=== PATIENT | male | born 1955 | race Caucasian/White ===

== ENCOUNTER 2018-02-28 13:03 | Emergency (ER) | payer BC, OTHER, SELFPAY ==
[2018-02-28 13:11] VITALS: BP 94/67; PULSE 92; RESP 18; TEMP 36.8; O2SAT 96; BMI 33.0
--- NOTE | 2018-02-28 13:35 | ED.ALLEREA ---
HPI - Allergic Reaction <RAEANN Trevino - Last Filed: 02/28/18 21:39> General Chief complaint: Allergic Reaction Stated complaint: HIVES/WELTS Time Seen by Provider: 02/28/18 13:34 Source: patient Mode of arrival: ambulatory Limitations: no limitations History of Present Illness HPI narrative: 62-year-old male history of hypertension and is a former smoker here for complaint of having hives to his lower extremities that his moved up and to his lower back over the past couple of days. He denies any changes in his medications. He states that he is taking cetirizine and Benadryl for his symptoms. He denies any changes in hygiene products. He does state that he ate a few walnuts day before yesterday and is suspicious that this may be causing his symptoms. He denies any shortness of breath. No chest pain. He does state that he has felt dizzy after taking the Benadryl. No other concerns or complaints at this time. He denies any sensation of tightening in his throat. complaint: hives Related Data Home Medications Medication Instructions Recorded Confirmed cetirizine 10 mg PO BID 10/21/17 10/21/17 diphenhydramine HCl 1 cap PO PRN PRN 10/21/17 10/21/17 lansoprazole 15 mg PO DAILY 10/21/17 10/21/17 losartan 100 mg PO DAILY 10/21/17 10/21/17 lysine 500 mg PO DAILY 10/21/17 10/21/17 meloxicam 7.5 mg PO PRN PRN 10/21/17 10/21/17 multivitamin 1 tab PO DAILY 10/21/17 10/21/17 Previous Rx's Medication Instructions Recorded aspirin [Adult Low Dose Aspirin] 81 mg PO BID #60 tab 10/22/17 acetaminophen 650 mg PO Q6HR PRN #60 tab MDD 10/23/17 4000mg tamsulosin 0.4 mg PO DAILY #30 cap 10/23/17 prednisone 40 mg PO DAILY #6 tab 02/28/18 Allergies Allergy/AdvReac Type Severity Reaction Status Date / Time hydrocodone Allergy Severe Anxiety, Verified 02/28/18 13:18 ptsd exacerbation, urinary retention oxycodone Allergy Severe anxiety, Verified 02/28/18 13:18 ptsd exacerbation, urinary retention Penicillins [PENICILLINS] Allergy Severe THROAT Verified 02/28/18 13:18 SWELLING adhesive tape [ADHESIVE TAPE] Allergy Intermediate SOME Verified 02/28/18 13:18 TAPES, ITCHING ibuprofen [IBUPROFEN] Allergy Mild ITCHING Verified 02/28/18 13:18 ketoprofen [KETOPROFEN] Allergy Mild ITCHING Verified 02/28/18 13:18 lisinopril [LISINOPRIL] AdvReac Severe COUGH Verified 02/28/18 13:18 Review of Systems <RAEANN Trevino - Last Filed: 02/28/18 21:39> Constitutional Denies chills, Denies fever(s), Denies lethargy and Denies weakness Eyes Denies change in vision, Denies eye discharge, Denies irritation and Denies loss of vision ENT Ears, Nose, Mouth, and Throat: Denies change in voice, Denies neck pain and Denies sore throat Cardiovascular Denies chest pain, Denies irregular heart rhythm, Denies lightheadedness, Denies palpitations, Denies dyspnea, Denies dyspnea on exertion and Denies orthopnea Respiratory Denies cough, Denies dyspnea, Denies dyspnea on exertion and Denies wheezing Gastrointestinal Gastrointestinal: Denies abdominal pain, Denies change in bowel habits, Denies diarrhea, Denies nausea and Denies vomiting Genitourinary Denies hematuria, Denies flank pain, Denies urinary incontinence and Denies urinary urgency Musculoskeletal Denies neck pain Integumentary/Breasts Comments: Hives Neurologic Denies confusion, Denies loss of vision and Denies weakness Psychiatric Denies anxiety, Denies confusion, Denies depression, Denies homicidal ideation and Denies suicidal ideation Endocrine Denies palpitations Hematologic/Lymphatic Denies easy bruising Allergic/Immunologic Denies wheezing Exam <RAEANN Trevino - Last Filed: 02/28/18 21:39> Initial Vital Signs Initial Vital Signs: Vital Signs Temperature 98.3 F 02/28/18 13:11 Pulse Rate 92 H 02/28/18 13:11 Respiratory Rate 18 02/28/18 13:11 Blood Pressure 94/67 02/28/18 13:11 Pulse Oximetry 96 02/28/18 13:11 Const General: cooperative and well developed Nutritional Appearance: well nourished Orientation: alert, awake, oriented x3 and not confused [facility] Head: normocephalic and atraumatic Mouth: oral mucosae normal, oropharynx normal and moist mucous membranes Eyes Conjunctivae: conjunctivae normal Sclera: sclerae normal Pupils: PERRL EOM: EOM intact bilaterally Resp Effort & Inspection: normal respiratory effort, able to speak in complete sentences, no respiratory distress and no use of accessory muscles Auscultation: clear to auscultation bilaterally, no rales, no rhonchi and no wheezes Cardio Rate: regular rate Rhythm: regular rhythm Heart Sounds: no click, no gallops, no murmurs and no rubs Pulses: normal peripheral pulses Skin Other: urticaria to all extremities and to lower back Neuro General: alert, oriented x3, gait normal and no focal motor deficits Speech: speech normal <Rafiq Dangelo DO - Last Filed: 03/01/18 06:47> Initial Vital Signs Initial Vital Signs: Vital Signs Temperature 98.3 F 02/28/18 13:11 Pulse Rate 92 H 02/28/18 13:11 Respiratory Rate 18 02/28/18 13:11 Blood Pressure 94/67 02/28/18 13:11 Pulse Oximetry 96 02/28/18 13:11 Course <RAEANN Trevino - Last Filed: 02/28/18 21:39> Orders Ordered: Discontinued Medications Prednisone (Deltasone) 40 mg PO NOW ONE Stop: 02/28/18 14:35 Last Admin: 02/28/18 15:43 Dose: 40 mg Vital Signs - 8 hr 02/28/18 13:50 Pulse Rate 89 Respiratory Rate 15 Blood Pressure [Right Arm] 108/66 Pulse Oximetry 95 <DO Daniella Roy Last Filed: 03/01/18 06:47> Orders Ordered: Discontinued Medications Prednisone (Deltasone) 40 mg PO NOW ONE Stop: 02/28/18 14:35 Last Admin: 02/28/18 15:43 Dose: 40 mg Vital Signs - 8 hr 02/28/18 13:50 Pulse Rate 89 Respiratory Rate 15 Blood Pressure [Right Arm] 108/66 Pulse Oximetry 95 MDM - Allergic Reaction <RAEANN Trevino - Last Filed: 02/28/18 21:39> Lab Data Result diagrams: 02/28/18 14:10 02/28/18 14:10 Lab Results 02/28/18 02/28/18 Range/Units 14:10 14:10 WBC 15.9 H (4.5-11.0) X10^3/uL RBC 4.92 (4.5-5.9) X10^6/uL Hgb 14.2 (13.5-17.5) g/dL Hct 41.7 (41-53) % MCV 84.8 (80-100) fL MCH 28.8 (26-34) PG MCHC 34.0 (30-36) % RDW 16.7 H (11.6-14.8) % Plt Count 170 (150-400) X10^3/uL Neut % (Auto) 93.4 H (50-75) % Lymph % (Auto) 4.1 L (25-40) % [place] % (Auto) 1.8 L (3-14) % Eos % (Auto) 0.2 L (2-4) % Baso % (Auto) 0.5 (0-2) % Neut # (Auto) 36736 H (3997-3117) /uL Sodium 138 (137-145) mmol/L Potassium 4.3 (3.4-5.1) mmol/L Chloride 101 (98-107) mmol/L Carbon Dioxide 29 (22-32) mmol/L BUN 21 H (9-20) mg/dL Creatinine 1.20 (0.66-1.25) mg/dL Estimated GFR > 60.0 (>60) mL/min BUN/Creatinine Ratio 17.5 (6-22) Glucose 151 H (80-110) mg/dL Calcium 8.7 (8.4-10.2) mg/dL Total Bilirubin 1.0 (0.2-1.3) mg/dL AST 17 (17-59) IU/L ALT 20 L (21-72) IU/L Alkaline Phosphatase 52 (38-126) U/L Total Creatine Kinase 31 L (55-170) U/L Troponin I < 0.012 (0.01-0.034) ng/mL B-Natriuretic Peptide < 100.0 (<100) Total Protein 6.2 L (6.3-8.2) g/dL Albumin 3.6 (3.5-5.0) g/dL Globulin 2.6 (1.7-4.1) g/dL Albumin/Globulin Ratio 1.4 (1.0-2.8) Imaging Data Chest x-ray: Radiologist's impression: [address] [address] XRay Report Signed Patient: Venkata Navas MR#: [id number] : 1955 Acct:[id number] Age/Sex: 62 / M Date of Service: 02/28/18 Loc: ED Accession Number: [id number] Procedure: XR chest 1V Ordering Provider: Bry Wagner PROCEDURE: XR CHEST 1V INDICATIONS: dizziness TECHNIQUE: One view of the chest was acquired. COMPARISON: None. FINDINGS: Surgical changes and devices: None. Lungs and pleura: No pleural effusions or pneumothorax. Lungs are clear. Mediastinum: Mediastinal contours appear normal. Heart size is normal. Bones and chest wall: No suspicious bony lesions. Overlying soft tissues appear unremarkable. IMPRESSION: No acute cardiopulmonary pathology. ECG Data Interpretation: EKG shows normal sinus rhythm with no ST elevation or depression. No ectopy. Ventricular rate of 84. Pr interval 177. QRS duration of 105. QT of 371 MDM Narrative Medical decision making narrative: CBC shows elevated white count otherwise is unremarkable. Chem panel shows elevated glucose otherwise is unremarkable. BNP was obtained was negative. Cardiac enzymes was obtained was negative. Chest x-ray was obtained was unremarkable. Believe that his symptoms of the dizziness is due to his Benadryl use. Suspect that the walnut ingestion may be causing his symptoms. Will have her continue to use the Zyrtec during the day as is less sedating than the Benadryl and use Benadryl at night. He is given short course of prednisone to help with symptoms. Follow up with his primary care provider later this week. For any worsening symptoms return to the emergency room. <Rafiq Dangelo, - Last Filed: 03/01/18 06:47> Lab Data Lab Results 02/28/18 02/28/18 Range/Units 14:10 14:10 WBC 15.9 H (4.5-11.0) X10^3/uL RBC 4.92 (4.5-5.9) X10^6/uL Hgb 14.2 (13.5-17.5) g/dL Hct 41.7 (41-53) % MCV 84.8 (80-100) fL MCH 28.8 (26-34) PG MCHC 34.0 (30-36) % RDW 16.7 H (11.6-14.8) % Plt Count 170 (150-400) X10^3/uL Neut % (Auto) 93.4 H (50-75) % Lymph % (Auto) 4.1 L (25-40) % [place] % (Auto) 1.8 L (3-14) % Eos % (Auto) 0.2 L (2-4) % Baso % (Auto) 0.5 (0-2) % Neut # (Auto) 16603 H (9529-0585) /uL Sodium 138 (137-145) mmol/L Potassium 4.3 (3.4-5.1) mmol/L Chloride 101 (98-107) mmol/L Carbon Dioxide 29 (22-32) mmol/L BUN 21 H (9-20) mg/dL Creatinine 1.20 (0.66-1.25) mg/dL Estimated GFR > 60.0 (>60) mL/min BUN/Creatinine Ratio 17.5 (6-22) Glucose 151 H (80-110) mg/dL Calcium 8.7 (8.4-10.2) mg/dL Total Bilirubin 1.0 (0.2-1.3) mg/dL AST 17 (17-59) IU/L ALT 20 L (21-72) IU/L Alkaline Phosphatase 52 (38-126) U/L Total Creatine Kinase 31 L (55-170) U/L Troponin I < 0.012 (0.01-0.034) ng/mL B-Natriuretic Peptide < 100.0 (<100) Total Protein 6.2 L (6.3-8.2) g/dL Albumin 3.6 (3.5-5.0) g/dL Globulin 2.6 (1.7-4.1) g/dL Albumin/Globulin Ratio 1.4 (1.0-2.8) Discharge Plan Departure Patient Disposition: Home Clinical Impression: Urticaria Discharge Date/Time: 02/28/18 15:57 Interventions: ED Discharge Assessment Last Done: 02/28/18 15:52 Instructions: DI for Hives Activity Restrictions/Additional Instructions: Laboratory work today shows elevated white count which may be due to a viral illness or due to inflammation. Laboratory results also show elevated blood glucose otherwise laboratory results were unremarkable. EKG and chest x-ray were obtained were unremarkable. Believe symptoms of dizziness is due to the Benadryl use. Use Zyrtec during the day as it is not sedating like Benadryl. Use Benadryl at night for symptoms. Also your prescribed short course of prednisone to help with the inflammation. Suspect that the walnut ingestion may be the cause of the symptoms. Follow up with her primary care provider later this week for re-evaluation. For any worsening symptoms return to the emergency room. Prescriptions: New prednisone 20 mg tablet 40 mg PO DAILY Qty: 6 RF: 0 No Action multivitamin Tablet 1 tab PO DAILY RF: 0 diphenhydramine HCl 50 mg Capsule 1 cap PO PRN PRN (Reason: unknown) RF: 0 cetirizine 10 mg Tablet 10 mg PO BID RF: 0 meloxicam 7.5 mg Tablet 7.5 mg PO PRN PRN (Reason: Unknown) RF: 0 lysine 500 mg Tablet 500 mg PO DAILY RF: 0 losartan 100 mg Tablet 100 mg PO DAILY RF: 0 lansoprazole 15 mg Tablet,Disintegrat, Delay Rel 15 mg PO DAILY RF: 0 aspirin [Adult Low Dose Aspirin] 81 mg Tablet,Delayed Release (Dr/Ec) 81 mg PO BID Qty: 60 RF: 0 tamsulosin 0.4 mg capsule,extended release 24hr 0.4 mg PO DAILY Qty: 30 RF: 0 acetaminophen 325 mg Tablet 650 mg PO Q6HR MDD 4000mg PRN (Reason: pain) Qty: 60 RF: 0 Referrals: Duong Sandoval MD [Primary Care Provider] - <Rafiq Dangelo DO - Last Filed: 03/01/18 06:47> [facility]ie[facility] Attestation: I was available for consultation during this patient's emergency department encounter
--- NOTE | 2018-02-28 13:43 | ED_ITS ---
HPI - Allergic Reaction <RAEANN Trevino - Last Filed: 02/28/18 21:39> General Chief complaint: Allergic Reaction Stated complaint: HIVES/WELTS Time Seen by Provider: 02/28/18 13:34 Source: patient Mode of arrival: ambulatory Limitations: no limitations History of Present Illness HPI narrative: 62-year-old male history of hypertension and is a former smoker here for complaint of having hives to his lower extremities that his moved up and to his lower back over the past couple of days. He denies any changes in his medications. He states that he is taking cetirizine and Benadryl for his symptoms. He denies any changes in hygiene products. He does state that he ate a few walnuts day before yesterday and is suspicious that this may be causing his symptoms. He denies any shortness of breath. No chest pain. He does state that he has felt dizzy after taking the Benadryl. No other concerns or complaints at this time. He denies any sensation of tightening in his throat. complaint: hives Related Data Home Medications Medication Instructions Recorded Confirmed cetirizine 10 mg PO BID 10/21/17 10/21/17 diphenhydramine HCl 1 cap PO PRN PRN 10/21/17 10/21/17 lansoprazole 15 mg PO DAILY 10/21/17 10/21/17 losartan 100 mg PO DAILY 10/21/17 10/21/17 lysine 500 mg PO DAILY 10/21/17 10/21/17 meloxicam 7.5 mg PO PRN PRN 10/21/17 10/21/17 multivitamin 1 tab PO DAILY 10/21/17 10/21/17 Previous Rx's Medication Instructions Recorded aspirin [Adult Low Dose Aspirin] 81 mg PO BID #60 tab 10/22/17 acetaminophen 650 mg PO Q6HR PRN #60 tab MDD 10/23/17 4000mg tamsulosin 0.4 mg PO DAILY #30 cap 10/23/17 prednisone 40 mg PO DAILY #6 tab 02/28/18 Allergies Allergy/AdvReac Type Severity Reaction Status Date / Time hydrocodone Allergy Severe Anxiety, Verified 02/28/18 13:18 ptsd exacerbation, urinary retention oxycodone Allergy Severe anxiety, Verified 02/28/18 13:18 ptsd exacerbation, urinary retention Penicillins [PENICILLINS] Allergy Severe THROAT Verified 02/28/18 13:18 SWELLING adhesive tape [ADHESIVE TAPE] Allergy Intermediate SOME Verified 02/28/18 13:18 TAPES, ITCHING ibuprofen [IBUPROFEN] Allergy Mild ITCHING Verified 02/28/18 13:18 ketoprofen [KETOPROFEN] Allergy Mild ITCHING Verified 02/28/18 13:18 lisinopril [LISINOPRIL] AdvReac Severe COUGH Verified 02/28/18 13:18 Review of Systems <RAEANN Trevino - Last Filed: 02/28/18 21:39> Constitutional Denies chills, Denies fever(s), Denies lethargy and Denies weakness Eyes Denies change in vision, Denies eye discharge, Denies irritation and Denies loss of vision ENT Ears, Nose, Mouth, and Throat: Denies change in voice, Denies neck pain and Denies sore throat Cardiovascular Denies chest pain, Denies irregular heart rhythm, Denies lightheadedness, Denies palpitations, Denies dyspnea, Denies dyspnea on exertion and Denies orthopnea Respiratory Denies cough, Denies dyspnea, Denies dyspnea on exertion and Denies wheezing Gastrointestinal Gastrointestinal: Denies abdominal pain, Denies change in bowel habits, Denies diarrhea, Denies nausea and Denies vomiting Genitourinary Denies hematuria, Denies flank pain, Denies urinary incontinence and Denies urinary urgency Musculoskeletal Denies neck pain Integumentary/Breasts Comments: Hives Neurologic Denies confusion, Denies loss of vision and Denies weakness Psychiatric Denies anxiety, Denies confusion, Denies depression, Denies homicidal ideation and Denies suicidal ideation Endocrine Denies palpitations Hematologic/Lymphatic Denies easy bruising Allergic/Immunologic Denies wheezing Exam <RAEANN Trevino - Last Filed: 02/28/18 21:39> Initial Vital Signs Initial Vital Signs: Vital Signs Temperature 98.3 F 02/28/18 13:11 Pulse Rate 92 H 02/28/18 13:11 Respiratory Rate 18 02/28/18 13:11 Blood Pressure 94/67 02/28/18 13:11 Pulse Oximetry 96 02/28/18 13:11 Const General: cooperative and well developed Nutritional Appearance: well nourished Orientation: alert, awake, oriented x3 and not confused [facility] Head: normocephalic and atraumatic Mouth: oral mucosae normal, oropharynx normal and moist mucous membranes Eyes Conjunctivae: conjunctivae normal Sclera: sclerae normal Pupils: PERRL EOM: EOM intact bilaterally Resp Effort & Inspection: normal respiratory effort, able to speak in complete sentences, no respiratory distress and no use of accessory muscles Auscultation: clear to auscultation bilaterally, no rales, no rhonchi and no wheezes Cardio Rate: regular rate Rhythm: regular rhythm Heart Sounds: no click, no gallops, no murmurs and no rubs Pulses: normal peripheral pulses Skin Other: urticaria to all extremities and to lower back Neuro General: alert, oriented x3, gait normal and no focal motor deficits Speech: speech normal <Rafiq Dangelo DO - Last Filed: 03/01/18 06:47> Initial Vital Signs Initial Vital Signs: Vital Signs Temperature 98.3 F 02/28/18 13:11 Pulse Rate 92 H 02/28/18 13:11 Respiratory Rate 18 02/28/18 13:11 Blood Pressure 94/67 02/28/18 13:11 Pulse Oximetry 96 02/28/18 13:11 Course <RAEANN Trevino - Last Filed: 02/28/18 21:39> Orders Ordered: Discontinued Medications Prednisone (Deltasone) 40 mg PO NOW ONE Stop: 02/28/18 14:35 Last Admin: 02/28/18 15:43 Dose: 40 mg Vital Signs - 8 hr 02/28/18 13:50 Pulse Rate 89 Respiratory Rate 15 Blood Pressure [Right Arm] 108/66 Pulse Oximetry 95 <DO Daniella Roy Last Filed: 03/01/18 06:47> Orders Ordered: Discontinued Medications Prednisone (Deltasone) 40 mg PO NOW ONE Stop: 02/28/18 14:35 Last Admin: 02/28/18 15:43 Dose: 40 mg Vital Signs - 8 hr 02/28/18 13:50 Pulse Rate 89 Respiratory Rate 15 Blood Pressure [Right Arm] 108/66 Pulse Oximetry 95 MDM - Allergic Reaction <RAEANN Trevino - Last Filed: 02/28/18 21:39> Lab Data Result diagrams: 02/28/18 14:10 02/28/18 14:10 Lab Results 02/28/18 02/28/18 Range/Units 14:10 14:10 WBC 15.9 H (4.5-11.0) X10^3/uL RBC 4.92 (4.5-5.9) X10^6/uL Hgb 14.2 (13.5-17.5) g/dL Hct 41.7 (41-53) % MCV 84.8 (80-100) fL MCH 28.8 (26-34) PG MCHC 34.0 (30-36) % RDW 16.7 H (11.6-14.8) % Plt Count 170 (150-400) X10^3/uL Neut % (Auto) 93.4 H (50-75) % Lymph % (Auto) 4.1 L (25-40) % [place] % (Auto) 1.8 L (3-14) % Eos % (Auto) 0.2 L (2-4) % Baso % (Auto) 0.5 (0-2) % Neut # (Auto) 46231 H (6983-3184) /uL Sodium 138 (137-145) mmol/L Potassium 4.3 (3.4-5.1) mmol/L Chloride 101 (98-107) mmol/L Carbon Dioxide 29 (22-32) mmol/L BUN 21 H (9-20) mg/dL Creatinine 1.20 (0.66-1.25) mg/dL Estimated GFR > 60.0 (>60) mL/min BUN/Creatinine Ratio 17.5 (6-22) Glucose 151 H (80-110) mg/dL Calcium 8.7 (8.4-10.2) mg/dL Total Bilirubin 1.0 (0.2-1.3) mg/dL AST 17 (17-59) IU/L ALT 20 L (21-72) IU/L Alkaline Phosphatase 52 (38-126) U/L Total Creatine Kinase 31 L (55-170) U/L Troponin I < 0.012 (0.01-0.034) ng/mL B-Natriuretic Peptide < 100.0 (<100) Total Protein 6.2 L (6.3-8.2) g/dL Albumin 3.6 (3.5-5.0) g/dL Globulin 2.6 (1.7-4.1) g/dL Albumin/Globulin Ratio 1.4 (1.0-2.8) Imaging Data Chest x-ray: Radiologist's impression: [address] [address] XRay Report Signed Patient: Venkata Navas MR#: [id number] : 1955 Acct:[id number] Age/Sex: 62 / M Date of Service: 02/28/18 Loc: ED Accession Number: [id number] Procedure: XR chest 1V Ordering Provider: Bry Wagner PROCEDURE: XR CHEST 1V INDICATIONS: dizziness TECHNIQUE: One view of the chest was acquired. COMPARISON: None. FINDINGS: Surgical changes and devices: None. Lungs and pleura: No pleural effusions or pneumothorax. Lungs are clear. Mediastinum: Mediastinal contours appear normal. Heart size is normal. Bones and chest wall: No suspicious bony lesions. Overlying soft tissues appear unremarkable. IMPRESSION: No acute cardiopulmonary pathology. ECG Data Interpretation: EKG shows normal sinus rhythm with no ST elevation or depression. No ectopy. Ventricular rate of 84. Pr interval 177. QRS duration of 105. QT of 371 MDM Narrative Medical decision making narrative: CBC shows elevated white count otherwise is unremarkable. Chem panel shows elevated glucose otherwise is unremarkable. BNP was obtained was negative. Cardiac enzymes was obtained was negative. Chest x- ray was obtained was unremarkable. Believe that his symptoms of the dizziness is due to his Benadryl use. Suspect that the walnut ingestion may be causing his symptoms. Will have her continue to use the Zyrtec during the day as is less sedating than the Benadryl and use Benadryl at night. He is given short course of prednisone to help with symptoms. Follow up with his primary care provider later this week. For any worsening symptoms return to the emergency room. <Rafiq Dangelo, - Last Filed: 03/01/18 06:47> Lab Data Lab Results 02/28/18 02/28/18 Range/Units 14:10 14:10 WBC 15.9 H (4.5-11.0) X10^3/uL RBC 4.92 (4.5-5.9) X10^6/uL Hgb 14.2 (13.5-17.5) g/dL Hct 41.7 (41-53) % MCV 84.8 (80-100) fL MCH 28.8 (26-34) PG MCHC 34.0 (30-36) % RDW 16.7 H (11.6-14.8) % Plt Count 170 (150-400) X10^3/uL Neut % (Auto) 93.4 H (50-75) % Lymph % (Auto) 4.1 L (25-40) % [place] % (Auto) 1.8 L (3-14) % Eos % (Auto) 0.2 L (2-4) % Baso % (Auto) 0.5 (0-2) % Neut # (Auto) 41882 H (3306-4714) /uL Sodium 138 (137-145) mmol/L Potassium 4.3 (3.4-5.1) mmol/L Chloride 101 (98-107) mmol/L Carbon Dioxide 29 (22-32) mmol/L BUN 21 H (9-20) mg/dL Creatinine 1.20 (0.66-1.25) mg/dL Estimated GFR > 60.0 (>60) mL/min BUN/Creatinine Ratio 17.5 (6-22) Glucose 151 H (80-110) mg/dL Calcium 8.7 (8.4-10.2) mg/dL Total Bilirubin 1.0 (0.2-1.3) mg/dL AST 17 (17-59) IU/L ALT 20 L (21-72) IU/L Alkaline Phosphatase 52 (38-126) U/L Total Creatine Kinase 31 L (55-170) U/L Troponin I < 0.012 (0.01-0.034) ng/mL B-Natriuretic Peptide < 100.0 (<100) Total Protein 6.2 L (6.3-8.2) g/dL Albumin 3.6 (3.5-5.0) g/dL Globulin 2.6 (1.7-4.1) g/dL Albumin/Globulin Ratio 1.4 (1.0-2.8) Discharge Plan Departure Patient Disposition: Home Clinical Impression: Urticaria Discharge Date/Time: 02/28/18 15:57 Interventions: ED Discharge Assessment Last Done: 02/28/18 15:52 Instructions: DI for Hives Activity Restrictions/Additional Instructions: Laboratory work today shows elevated white count which may be due to a viral illness or due to inflammation. Laboratory results also show elevated blood glucose otherwise laboratory results were unremarkable. EKG and chest x-ray were obtained were unremarkable. Believe symptoms of dizziness is due to the Benadryl use. Use Zyrtec during the day as it is not sedating like Benadryl. Use Benadryl at night for symptoms. Also your prescribed short course of prednisone to help with the inflammation. Suspect that the walnut ingestion may be the cause of the symptoms. Follow up with her primary care provider later this week for re-evaluation. For any worsening symptoms return to the emergency room. Prescriptions: New prednisone 20 mg tablet 40 mg PO DAILY Qty: 6 RF: 0 No Action multivitamin Tablet 1 tab PO DAILY RF: 0 diphenhydramine HCl 50 mg Capsule 1 cap PO PRN PRN (Reason: unknown) RF: 0 cetirizine 10 mg Tablet 10 mg PO BID RF: 0 meloxicam 7.5 mg Tablet 7.5 mg PO PRN PRN (Reason: Unknown) RF: 0 lysine 500 mg Tablet 500 mg PO DAILY RF: 0 losartan 100 mg Tablet 100 mg PO DAILY RF: 0 lansoprazole 15 mg Tablet,Disintegrat, Delay Rel 15 mg PO DAILY RF: 0 aspirin [Adult Low Dose Aspirin] 81 mg Tablet,Delayed Release (Dr/Ec) 81 mg PO BID Qty: 60 RF: 0 tamsulosin 0.4 mg capsule,extended release 24hr 0.4 mg PO DAILY Qty: 30 RF: 0 acetaminophen 325 mg Tablet 650 mg PO Q6HR MDD 4000mg PRN (Reason: pain) Qty: 60 RF: 0 Referrals: Duong Sandoval MD [Primary Care Provider] - <Rafiq Dangelo DO - Last Filed: 03/01/18 06:47> [facility]ieature Attestation: I was available for consultation during this patient's emergency department encounter
[2018-02-28 13:50] VITALS: BP 108/66; PULSE 89; RESP 15; O2SAT 95
--- NOTE | 2018-02-28 13:56 | DI.RAD.S_ITS ---
PROCEDURE: XR CHEST 1V INDICATIONS: dizziness TECHNIQUE: One view of the chest was acquired. COMPARISON: None. FINDINGS: Surgical changes and devices: None. Lungs and pleura: No pleural effusions or pneumothorax. Lungs are clear. Mediastinum: Mediastinal contours appear normal. Heart size is normal. Bones and chest wall: No suspicious bony lesions. Overlying soft tissues appear unremarkable. IMPRESSION: No acute cardiopulmonary pathology. Dictated by: Neo Malone M.D. on 02/28/2018 at 14:38 Approved by: Neo Malone M.D. on 02/28/2018 at 14:38
[2018-02-28 14:18] LABS: Add Manual Diff / Slide Review NO; Basophils Percent Auto 0.5 % (0-2); Eosinophils Percent Auto 0.2 % (2-4); Hematocrit 41.7 % (41-53); Hemoglobin 14.2 g/dL (13.5-17.5); Lymphocytes Percent Auto 4.1 % (25-40); Mean Corpuscular Hemoglobin 28.8 PG (26-34); Mean Corpuscular Volume 84.8 fL (80-100); Monocytes Percent Auto 1.8 % (3-14); Neutrophils Absolute Auto 14800 /uL (3000-5900); Neutrophils Percent Auto 93.4 % (50-75); Platelet Count 170 X10^3/uL (150-400); Red Blood Cell Count 4.92 X10^6/uL (4.5-5.9); Red Cell Distribution Width 16.7 % (11.6-14.8); White Blood Cell Count 15.9 X10^3/uL (4.5-11.0)
[2018-02-28 14:30] LABS: Alanine Aminotransferase 20 IU/L (21-72); Albumin 3.6 g/dL (3.5-5.0); Albumin Globulin Ratio 1.4 (1.0-2.8); Alkaline Phosphatase 52 U/L (38-126); Aspartate Aminotransferase 17 IU/L (17-59); BUN Creatinine Ratio 17.5 (6-22); Blood Urea Nitrogen 21 mg/dL (9-20); Calcium 8.7 mg/dL (8.4-10.2); Carbon Dioxide 29 mmol/L (22-32); Chloride 101 mmol/L (98-107); Creatine Kinase 31 U/L (55-170); Estimated Glomerular Filt Rate > 60.0 mL/min (>60); Globulin 2.6 g/dL (1.7-4.1); Glucose 151 mg/dL (80-110); HEMOLYSIS 22 (0-50); Potassium 4.3 mmol/L (3.4-5.1); Sodium 138 mmol/L (137-145); Total Protein 6.2 g/dL (6.3-8.2)
[2018-02-28 14:56] LABS: B Type Natriuretic Peptide < 100.0 (<100)
[2018-02-28 14:58] LABS: Troponin I < 0.012 ng/mL (0.01-0.034)
[2018-02-28] MEDS: predniSONE 20 MG TABLET 40 MG PO (15:43)
== END 2018-02-28 15:57 | disposition home or self-care (01) ==
PROVIDERS: Emergency Provider Nurse Practitioner Family; Family Provider Family Medicine; PCP Family Medicine
DX: L50.9 Urticaria, unspecified (principal); R42 Dizziness and giddiness
CPT/HCPCS: 36591; 71045; 80053; 82550; 82553; 83880; 84484; 85025; 93005; 93010; 99282; 99285

== ENCOUNTER 2018-10-26 10:45 | Inpatient (IN) | payer OTHER, SELFPAY ==
[2018-10-12 13:49] VITALS: BMI 31.1
[2018-10-26] VITALS (14 sets, daily range): BP systolic 107–132; BP diastolic 64–96; PULSE 64–82; RESP 14–21; TEMP 36.6–37.6; O2SAT 90–99; BMI 31.1
--- NOTE | 2018-10-26 06:00 | DI.RAD.S_ITS ---
PROCEDURE: XR KNEE RT 1TO2V INDICATIONS: prosthesis placement TECHNIQUE: 2 view(s) of the knee acquired. COMPARISON: [facility] [place], [place], XR KNEE ARTHRITIC SERIES RT, 06/02/2018, 13:28. FINDINGS: Bones: Patient is status post knee joint arthroplasty. Hardware components are in expected positions. Visualized bony structures are intact. Soft tissues: Overlying postoperative changes are noted. There is a soft tissue edema, air, and fluid are present. No unexpected radiopaque foreign bodies are evident. IMPRESSION: Expected post surgical changes related to total right knee arthroplasty. Dictated by: James Centeno M.D. on 10/26/2018 at 14:43 Approved by: James Centeno M.D. on 10/26/2018 at 14:43
[2018-10-26] MEDS: LACTATED RINGERS 1,000 ML 42 ML IV ×2 (11:17→14:15)
[2018-10-26] MEDS: PREGABALIN 75 MG CAPSULE PO (12:34)
--- NOTE | 2018-10-26 12:41 | PM.PREOP ---
Pre-operative Note Interval Note History & Physical reviewed/Exam performed by Physician: Yes Changes to H&P: Yes H&P completed within 30 days and has changed as indicated here:: Has lowered Losartan dose (correct dose is in the chart). Has lost about 55 pounds intentionally.
[2018-10-26] MEDS: CLINDAMYCIN 900 MG/50 ML PIGGYBACK 50 MG IV (13:25)
--- NOTE | 2018-10-26 13:35 | SUR.PREOP ---
Tylenol held because patient took tylenol in the am. Declined Celebrex due to sensitivities to Ibuprofen/Ketoprofen.
--- NOTE | 2018-10-26 13:57 | SUR.OPER ---
Supine on padded OR bed. Pillow under head, arms secured on padded armboards <90 degree abduction. Safety belt across torso. Non-operative leg secured with tape over blanket over lower leg. Operative leg secured in DeMayo/Compa positioner. Foam padded brace at thigh of operative leg.
[2018-10-26] MEDS: TRANEXAMIC ACID 1,000 MG VIAL 1000 MG INJ ×2 (14:04→14:49)
[2018-10-26] MEDS: MORPHINE 4 MG/ML INJ INJ (14:05)
[2018-10-26] MEDS: BUPIVACAINE LIPOSOME 266 MG/20 ML VIAL INJ (14:05)
[2018-10-26] MEDS: BUPIVACAINE 0.25% W/ EPI (PF) 10 ML VIAL INJ (14:06)
--- NOTE | 2018-10-26 15:11 | P.OP_ITS ---
Operative Date/Time/Diagnoses Date of procedure: 10/26/18 Time of procedure: 15:00 Pre-op diagnosis: Right knee osteoarthritis Post-op diagnosis: same Procedure & Clinicians Procedure: Right total knee replacement Same procedure as scheduled: Yes Indications: The patient has had progressively worsening right knee pain with radiographic changes consistent with arthritis. Non-operative management has failed and the patient has requested total knee replacement. The risks, benefits and alternatives to surgery were discussed with the patient prior to proceeding. Risks discussed included, but were not limited to, failure to relieve pain, stiffness, infection, nerve damage, deep venous thrombosis, pulmonary embolism, stroke, coma, heart attack, permanent paralysis and , as well as the potential need for eventual revision of the prosthetic. Surgeon: Dagoberto Rivero Carry Out Clerk: Dutch Gaytan Click Yes if Unassisted: No Anesthesia Type: Spinal, Sedation and Local Operative Notes Findings: Severe tricompartmental osteoarthritis worst in the patellofemoral compartment. Closure Type: primary Specimen(s): none sent Prosthetic devices, grafts, tissues, transplants, or devices: Implants used in this procedure were manufactured by the [employer] and [employer] and [employer] luded the BCS II Journey total knee replacement with a size 6 right Oxinium femoral component, a size 5 right non porous tibial base plate, a 9 mm cross- linked polyethylene tibial insert and a 35 mm oval Praveena II patellar component. Applied: implant(s) Estimated Blood Loss (mL): 50 Blood products transfused: none Tourniquet time (min): 53 Procedure in detail: The patient was seen in the pre-operative area, where the patient identified the right knee as the operative site and this was marked with my initials. The patient received pre-operative antibiotics, and was taken to the operating room and placed on the operative table in the supine position. After satisfactory anesthesia, a real time operator out was performed. The right leg was encircled with a tourniquet about the proximal thigh, and the leg was prepared from the toes to the tourniquet with ChloroPrep in the usual fashion and draped through sterile drapes. The leg was elevated and exsanguinated with Eschmark bandage and the tourniquet inflated to 250 mmHg pressure. The knee was approached through an approximately 18 cm incision centered over the patella and carried into the knee through a medial parapatellar arthrotomy. The anterior osteophytes and soft tissues were removed. The rotational landmarks of [place]'s line and the transepicondylar axis were marked on the femur with electrocautery, and intramedullary guide holes for the femur and tibia were created. The distal femoral cut was made in 6 degrees of valgus using the intramedullary guide at the primary cut setting. The proximal tibial cut was then made using the intramedullary guide, taking 9 mm of bone off the less involved side. The extension gap was checked and the rotation of the femoral component confirmed with the gap balancing system. The anterior, posterior and chamfer cuts were then made. The posterior osteophytes and soft tissues were then removed. The posterior capsule was injected with part of a mixture of 60 ml 0.25% Marcaine mixed with 20 ml Exparel and 4 mg of morphine for post-operative pain control. The remainder of this mixture was injected into the capsule and subcutaneous tissues during cement curing. The tibia was prepared with the rotation set by an extra medullary guide. Trial tibial and femoral components were then placed and the intercondylar notch cut through the femoral trial. Range of motion was 0-135 degrees, with good stability throughout the range. The patella was then cut to accommodate the patellar prosthetic. There was no need for a lateral release. The trials were then removed, and the femoral hole plugged with a bone plug. The bone was prepared with pulsatile lavage, and dried with a sponge. Cement was applied and the final prosthetics placed. Excess cement was removed during and after cement curing. After confirming there was no extruded cement posteriorly, the final tibial insert was placed. The knee was copiously irrigated and the tourniquet deflated. Hemostasis was obtained. The capsule was closed with interrupted # 2 polyester suture. The subcutaneous layer was closed with 3-0 Vicryl, and the skin with a running 3-0 V-Lock suture and SteriStrips. An Aquacel Ag dressing was applied and the patient was taken to recovery having tolerated the procedure well. Complications: none Condition: stable Disposition: PACU Plan for aftercare: The patient will be maintained on a standard total knee replacement protocol with weight bearing as tolerated. The patient will receive aspirin and sequential compression devices for DVT prophylaxis. The patient will be discharged home when safe for the home environment.
[2018-10-26] MEDS: HYDROMORPHONE 2 MG INJ 0.5 MG IV ×2 (15:19→15:32)
--- NOTE | 2018-10-26 15:56 | SUR.PHASEI ---
Report called to Geovanni.
--- NOTE | 2018-10-26 16:02 | SUR.PHASEI ---
pain 3
--- NOTE | 2018-10-26 16:19 | SUR.PHASEI ---
Pt transferred to the floor. VS stable. Report to Geovanni. Rose Mary cdi. Pt able to wave glynn ankles. IV saline locked. Belongings bag and cpap with patient.
[2018-10-26] MEDS: LACTATED RINGERS 1,000 ML 125 ML IV (16:55)
[2018-10-26] MEDS: LITHIUM 300 MG IR CAPSULE PO (20:11)
[2018-10-26] MEDS: DOCUSATE 100 MG CAPSULE PO (20:12)
[2018-10-26] MEDS: diphenhydrAMINE 25 MG TABLET 50 MG PO (20:12)
[2018-10-26] MEDS: ASPIRIN EC 81 MG TABLET PO (20:13)
[2018-10-26] MEDS: ACETAMINOPHEN 325 MG TABLET 975 MG PO (20:13)
[2018-10-26] MEDS: BENZTROPINE 1 MG TABLET PO (20:19)
[2018-10-26] MEDS: HYDROCODONE/ACET 10/325 TABLET 1 TAB PO (23:45)
[2018-10-27] MEDS: LACTATED RINGERS 1,000 ML 125 ML IV (00:25)
[2018-10-27 03:15] VITALS: BP 135/60; PULSE 83; RESP 18; TEMP 37.2; O2SAT 96
[2018-10-27] MEDS: HYDROCODONE/ACET 10/325 TABLET 1 TAB PO ×3 (03:40→11:42)
[2018-10-27] MEDS: PANTOPRAZOLE 40 MG TABLET PO (06:19)
[2018-10-27 07:00] LABS: Hematocrit 40.8 % (41-53); Hemoglobin 13.6 g/dL (13.5-17.5)
[2018-10-27 07:20] VITALS: BP 121/69; PULSE 76; RESP 16; TEMP 37; O2SAT 93
--- NOTE | 2018-10-27 07:29 | PM.DS.1 ---
History of Present Illness Date Patient Seen: 10/27/18 Time Patient Seen: 07:29 Chief complaint: [id number] Narrative: History and physical are contained in the chart in a previously completed note. Please refer to that note for this information. Discharge Providers Date of admission: 10/26/18 10:45 Discharge Date: 10/27/18 Primary care physician: Alfonso Elizalde MD Consults: 10/26/18 16:09 Consult to Discharge Planning Routine Comment: Consult to Physical Therapy Evaluate & Treat Comment: Physician Instructions: postop TKA protocol Consult to Respiratory Therapy Evaluate & Treat Comment: Physician Instructions: Evaluate and treat Discharge provider: Dagoberto Rivero MD Summary Discharge Diagnosis: 1. Right knee osteoarthritis 2. Mild post hemorrhagic anemia Hospital Course: The patient was admitted to the hospital and taken directly to the operating room on October 26, 2018 where he underwent an uncomplicated right total knee replacement. he had good pain control overnight and at the time of this dictation he would like to go home later today after physical therapy. Status at Discharge Cognitive/behavioral status at discharge: oriented Functional status at discharge: uses cane/walker Overall status at discharge: patient is progressing back to baseline Time Spent with Patient Less than 30 minutes Exam Vital Signs (past 8 hours): - 10/26/18 23:40 10/27/18 03:15 Temperature 97.9 F 99.0 F Pulse Rate 81 83 Respiratory Rate 16 18 Blood Pressure 130/81 135/60 Pulse Oximetry 95 96 Oxygen Delivery Method Nasal Cannula,CPAP Oxygen Flow Rate 1 Narrative Exam Narrative: Right knee wound is dressed with no drainage on the bandage. Calf is soft. Light touch and motion are intact in the right lower extremity. Objective Labs Result Diagrams: 10/27/18 06:35 Labs: Laboratory Results - last 24 hr 10/27/18 06:35 Hgb 13.6 Hct 40.8 L Discharge Plan Discharge Plan Patient Disposition: Home Discharge Med Rec/Prescriptions Prescriptions: New aspirin 81 mg Tablet,Delayed Release (Dr/Ec) 81 mg PO BID 42 Days Qty: 84 RF: 0 hydrocodone-acetaminophen 5-325 mg Tablet 1 tab PO Q4HR PRN (Reason: Pain, Moderate (4-6)) Qty: 50 RF: 0 hydroxyzine pamoate 25 mg Capsule 25 mg PO Q6HR PRN (Reason: Nausea) Qty: 40 RF: 0 Continued multivitamin Tablet 1 tab PO DAILY RF: 0 diphenhydramine HCl 50 mg Capsule 1 cap PO BEDTIME RF: 0 meloxicam 7.5 mg Tablet 15 mg PO DAILY RF: 0 lysine 500 mg Tablet 1,000 mg PO DAILY RF: 0 losartan 100 mg Tablet 50 mg PO DAILY RF: 0 omeprazole 40 mg Capsule,Delayed Release(Dr/Ec) 40 mg PO DAILY RF: 0 benztropine 1 mg Tablet 1 mg PO BID RF: 0 ziprasidone HCl 60 mg Capsule 60 mg PO BID RF: 0 acetaminophen 500 mg Capsule 500 mg PO Q6H PRN (Reason: Pain (Scale Score 1-3)) RF: 0 lithium carbonate 300 mg tablet 300 mg PO BID RF: 0 Follow up/Referrals: Alfonso Elizalde MD [Primary Care Provider] - Dagoberto Rivero MD [Physician] - 3-5 Days Provider Discharge Instructions Diet: Diet as Tolerated and Regular Activity: You may bear weight as tolerated. Cold/Heat Therapy: Apply ice to the right knee for 15 minutes every hour as needed for pain relief. Skin/Wound/Dressing Care Report to your healthcare provider any signs of infection, such as:: chills, fever, night sweats, increased pain, unusual drainage and unusual redness Dressing: Remove the Gilson wrap 3 days after surgery. You may then shower with the deeper dressing in place. Do not remove the deeper dressing until seen in the office. If the central strip of the deep dressing becomes saturated with either water or blood please call the office. Visit Report/Discharge Packet Instructions: DI for Knee Replacement Stand Alone Forms: Surgery Discharge Discharge Data Primary Care Provider: Alfonso Elizalde Attending Provider: Dagoberto Rivero Admit Date/Time: 10/26/18 10:45 Quality VTE Deep Vein Thrombosis/Pulmonary Embolism Present on Admission: No
--- NOTE | 2018-10-27 07:52 | PC.NURSE ---
Addendum entered by Theresa Woodward R.N. 10/27/18 11:45: Pt thinks that after receiving the prn Vistaril, he had 30 mins of not feeling good, maybe anxiety. PRN dose of [place] given at 1145 for 4/10 pain to right knee upon movement. Original Note: Day Shift- Pt A&OX4, able to make needs known using call light. High fall risk precautions in place. Pt rates 2/10 aching to right knee with no movement resting in bed. [place] prn given at 0745 for pre-medication to PT who are currently in his room. Ice pack on/off. Right knee aquacel AG dressing CDI with lela wrap. CMS+. BLE edema chronic for pt.
--- NOTE | 2018-10-27 08:00 | PT.IIE ---
Current Diagnoses Unilateral primary osteoarthritis, right knee (10/26/18) Surgery Performed Operation Date: 10/26/18 13:00 Actual Procedures p Total Knee Arthroplasty(Right) - Dagoberto Rivero MD Surgical History (Last Updated 10/12/18 @ 14:07 by Jumana Swartz, RN) History of arthroplasty of left knee (Acute 10/20/17) History of colonoscopy (Acute) Hx of appendectomy (Acute) Hx of arthroscopy of left knee (Acute) Hx of arthroscopy of right knee (Acute) Status post bilateral cataract extraction (Acute) Medical History (Last Updated 10/12/18 @ 14:31 by Jumana Swartz RN) Obstructive sleep apnea of adult (Chronic ~2009) Insomnia (Inactive) Chronic low back pain (Acute) Decreased range of motion (Acute) Easy bruisability (Acute) Former smoker (Acute) Numbness (Acute) Tremor (Acute) Bilateral shoulder pain (Chronic) Bipolar I disorder with isaiah (Chronic) GERD (gastroesophageal reflux disease) (Chronic) Obesity (BMI 30-39.9) (Chronic) Osteoarthritis (Chronic) Seasonal allergic rhinitis (Chronic) Physical Therapy Inpatient Evaluation/Re-Eval M1 PT/OT-IP Prior Functional Status Start: 10/27/18 08:51 Freq: NEEDED Status: Active Protocol: Document 10/27/18 08:15 BS (Rec: 10/27/18 12:02 BS [email or web address]) Medical Review Prior Functional Status Medical History Reviewed Yes Social History Household Members spouse Living Arrangements House Number of Floors (Floors) One Floor Number of Stairs To Enter/Railing? 5 stairs to enter home with railing on each side. No stairs once inside of home. Home Environment High Toilet Tub/Shower Home Equipment Front Wheel Walker Crutches Raised Toilet Seat Without Armrests Grab Bars Near Toilet Employment Status Retired Additional Social History Comment Pt states his will be taking ~ a week off from work to help with at home. M2 PT-IP Current Condition Start: 10/27/18 08:51 Freq: NEEDED Status: Active Protocol: Document 10/27/18 08:15 BS (Rec: 10/27/18 12:02 BS [email or web address]) Physical Therapy Current Condition Current Condition Evaluation Date 10/27/18 Treatment Diagnosis R TKA Weight Bearing Status Weight Bearing Status Weight Bear as Tolerated Allowed Weight Bearing Amount (enter % WBAT with RLE. or #) (%) M3 PT-IP Subjective Start: 10/27/18 08:51 Freq: NEEDED Status: Active Protocol: Document 10/27/18 08:15 BS (Rec: 10/27/18 12:02 BS [email or web address]) Subjective Physical Therapy Visit Type Type Initial Evaluation Visit Start Time 07:40 Visit Stop Time 08:15 Total Visit Minutes 35 Number of WINDOW CLERK Visits 0 Therapy Pain Assessment Pain When Pain Assessed At Rest Pain Present Pain Present Pain Reported Location Right Knee Intensity 4 Scale Used Numeric (1 - 10) Pain Management Techniques Apply Cold Elevation Timing of Activity with Medications M4 PT-IP Mobility and Gait Start: 10/27/18 08:51 Freq: NEEDED Status: Active Protocol: Document 10/27/18 08:15 BS (Rec: 10/27/18 12:02 BS [email or web address]) PT-Bed Mobility Assessment Supine to Sit Supine to Sit Minimal Assistance Sit to Supine Sit to Supine Contact Guard Assistance Scooting Scooting to Edge of Bed Standby Assistance PT-Transfer Assessment Sit to and From Stand Sit to and from Stand Minimal Assistance Equipment Transfer Assistive Device Front Wheeled Walker Orthotic/Prosthetic Devices or Brace: No Transfers Transfer Destination Chair Toilet Transfer Technique Stand Step Pivot Transfer Ability Level of Assist Contact Guard Assistance Comments Mobility Comments Pt was anxious during session and subjectively reported difficulty initiating movement of RLE with bed mobility. Pt was able to lift his RLE off of bedside without assistance, but did require Min A to control the lowering due to increased anxiety and fear of pain. Gait Assessment Gait Gait Assistance Required: Contact Guard Assist Distance (Feet) 50 Able to Maintain Weight Bearing Status Yes During Gait Assistive Devices Assistive Device 4 Wheeled Walker Orthotic/Prosthetic Devices or Brace: No Gait Deviations General Gait Pattern Antalgic Decreased Stride Length Decreased Feet Clearance Step-to Gait Factors Limiting Gait Function Factors Limiting Gait Function Decreased Strength Limited Range of Motion Pain Comments Gait Comments CGA with use of gait belt and FWW, pt did not report increased pain with ambulation . Denied dizziness/ lightheadedness. Stair Climbing Assessment Comments Stair Climbing Comments Stairs not assessed during IE as pt was anxious with first time weigthbearing after surgery. Plan to evaluate stairs with afternoon session and ensure safety in preparation for d/c home with . 5 BROOKS with 2 rails, no stairs once inside of home. PT-Balance Assessment Sitting Balance and Reactions Static Sitting Balance Ability Normal Dynamic Sitting Balance Ability Normal Standing Balance and Reactions Static Standing Balance Ability Good Dynamic Standing Balance Ability Fair Device Used FWW M5 PT-IP Objective Assessments Start: 10/27/18 08:51 Freq: NEEDED Status: Active Protocol: Document 10/27/18 08:15 BS (Rec: 10/27/18 12:02 BS [email or web address]) Orientation Orientation/Cognition Level of Alertness Alert Safety Awareness Understands Safety Issues Gross Range of Motion Lower Extremity ROM Assessment Right Impaired Impairments Decreased R quad activation s/ p R TKA. Hip flexion, ankle DF, PF strength 5/5 bilaterally. Muscle Tone Muscle Tone WNL Yes M6 PT-IP Treatment Start: 10/27/18 08:51 Freq: NEEDED Status: Active Protocol: Document 10/27/18 08:15 BS (Rec: 10/27/18 12:02 BS [email or web address]) Physical Therapy Treatment Exercises Exercises Ankle Pumps Quad Sets Education Education Provided Weight Bearing Status Post-Op Packet Safety Other Treatments Other Treatment Performed lateral weight shifts with B UE on FWW. CP to R knee at end of session for decreased pain and swelling. M7 PT-IP Assessment and Plan Start: 10/27/18 08:51 Freq: NEEDED Status: Active Protocol: Document 10/27/18 08:15 BS (Rec: 10/27/18 12:02 BS [email or web address]) PT Summary Assessment and Plan Potential Rehabilitation Potential Good Status of Condition at Evaluation Stable Summary Impairments Pain ROM Strength Coordination Bed Mobility Transfers Gait Activity Tolerance Assessment Summary Ha is a 63 year old s/p R TKA on 10/26/18. Pt currently presents with increased R knee pain rated as 4/10 at rest, no increase with ambulation, transfers, and bed mobility during PT evaluation. Pt was able to WBAT through RLE with ambulation x50' with use of FWW. He does demonstrate an antalgic gait pattern with decreased heel-toe mechanics and decreased knee flexion s/p R TKA. Pt was provided post- op packet and was instructed to perform quad sets for improved R quad activation following surgery. Pt benefits from skilled PT to address functional mobility impairments and to ensure safety with stairs as pt has 5 steps to enter home, his spouse will be present to help him once discharged. Goals Bed Mobility Goal Standby Assistance Transfer Goal Standby Assistance Gait Goal Standby Assistance Gait Distance 100' with FWW. Days to Meet Goals 2 Frequency of Treatment Frequency Of Treatment Twice a Day Treatment Plan Physical Therapy Treatment Plan Bed Mobility Training Transfer Training Gait Training Therapeutic Exercise Balance Retraining Discharge Planning Hot or Cold Pack Recommendations To Nursing Amount of Assist Needed 1 Person Assist Discharge Recommendations PT Discharge Recommendations Home
[2018-10-27] MEDS: ACETAMINOPHEN 325 MG TABLET 975 MG PO (09:04)
[2018-10-27] MEDS: DOCUSATE 100 MG CAPSULE PO (09:05)
[2018-10-27] MEDS: ASPIRIN EC 81 MG TABLET PO (09:05)
[2018-10-27] MEDS: LOSARTAN 50 MG TABLET PO (09:06)
[2018-10-27] MEDS: MELOXICAM 7.5 MG TABLET 15 MG PO (09:06)
[2018-10-27] MEDS: BENZTROPINE 1 MG TABLET PO (09:07)
[2018-10-27] MEDS: LITHIUM 300 MG IR CAPSULE PO (09:09)
[2018-10-27] MEDS: hydrOXYzine pamoate 25 MG CAPSULE PO (10:22)
[2018-10-27 13:32] VITALS: BP 141/81; PULSE 78; RESP 16; TEMP 36.9; O2SAT 97
--- NOTE | 2018-10-27 15:20 | CM.DANOTE ---
DCP/Assessment: Reviewed chart. Patient is a 63yr old male admitted [facility] for right TKA performed on 10-26-[address] Rivero. PCP is at [facility] in [place]. Primary payor is 1)[place] [employer]. Met with patient and spouse/Monisha at bedside explained CM/SW role. Spouse reports that current plan is for patient to go home when medically stable. Patient and spouse hopeful that patient will be discharged today. Per spouse they are waiting on therapy to work with him on stairs. Spouse reports that patient does have some cognitive/psychiatric impairments at baseline. Patient alert at time of visit but did appear somewhat slow in responses. Spouse reports that they have all needed DME and that patient will be going outpatient to IR for therapy. At this time no identified d/c planning needs. Spouse did request number to call to report difficulty obtaining home medications during this hospitalization. Provided spouse with name/number of Quality Management. Patient and spouse appreciative. P: Home when stable. CHERRIE Underwood Discharge Planning/Care Management CM Discharge Assessment Start: 10/27/18 15:17 Freq: Status: Active Protocol: Document 10/27/18 15:17 KJS (Rec: 10/27/18 15:20 KJS [id number]) Discharge Planning Assessment Assigned Irrigation Equipment Remover CHERRIE Underwood Contact Information Monisha Navas (spouse) [phone] Advance Directives? No: Declines further information History Provided By Patient Significant Other Medical Record Prior Living Arrangements House Household Members spouse Type of transporation used prior to Relies on Others admit Independent with ADL's Yes Is patient alert and oriented? Has some cognitive deficit per spouse Caregiver for Another No DME Already Rented / Owned FWW / Walker Patient/Family Preference OP PT Therapy Comment Outpatient therapy arranged at [facility] in [place]. Barriers to Discharge No Discharge Plan Home Transportation Arrangement Spouse to provide transport. Referrals Initiated None needed Whiteboard Updated in Patient Room with Yes name and ext. # of Irrigation Equipment Remover Review Status In Process Next Review Type Continued Stay Review Pre-Anesthesia Assessment Start: 10/12/18 13:49 Freq: Status: Complete Protocol: Document 10/12/18 13:49 CAB (Rec: 10/12/18 14:53 CAB [id number]) Pre-Anesthesia Assessment PAC Comment Severe reactions to hydrocodone and oxycodone, causes anxiety, PTSD exacerbation, urinary retention. 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 No Height 175.26 cm Weight 95.708 kg Body Mass Index (BMI) 31.1 Hearing Ability Normal Visual Assist Glasses Dentition Type Teeth, Natural Present Barriers to Learning Memory Other Aids No Hx Anesthesia Reactions Yes: Manic episode s/p anesthesia, pt wants a spinal Hx Family Anesthesia Reaction No Hx Malignant Hyperthermia No Hx Blood Transfusions No Anesthesia Review Requested 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 No Does patient have BOBO/SOB Yes: after standing w/low blood pressureafter standing w /low blood pressure Hx Sleep Apnea Yes CPAP/BIPAP use prescribed and used routinely Will Bring CPAP/BIPAP DOS Yes Currently Taking a Beta Herber No Can You Climb a Flight of Stairs Without No SOB Hx Chest Pain No Hx SOB Yes: after standing w/low blood pressure Hx Syncope or Dizziness No Anti-Coagulant Therapy No Has a Technical Support Director No Cardiac Testing No Hx Pacemaker/ICD No Pacemaker Rep Required? No Cardiac Clearance Received Not Applicable dysphagia No Comment High-protein, low carb Urinary Catheter Present No Hx Urinary Self Catheterization No Diabetes No Hx Drug Resistant Organism No Presence of External or Internal Medical Yes: Bilateral eye lens, left Devices knee prosthesis, CPAP Have you traveled outside the [facility] in the last 30 days? Marital Status Lives With spouse Prior Living Arrangements House Number of Floors (Floors) One Floor Number of Stairs To Enter/Railing? 4 stairs Support System Family Friend(s) Spouse Does the Patient Have Assistance After Yes Surgery Patient Discharge Plan Description Return Home Comment Pt not advised on length of stay per surgeon's office Feels Safe in Current Environment Yes Been Physically Hurt or Threatened By a No Person in Current Environment Do you have thoughts of harming yourself None or others? Are you currently considering suicide? No Do you have a plan to hurt yourself or No Plan others? Do You Have Any Spiritual Beliefs That No May Affect Your HC Choices? Do You Have Any Cultural Practices That No May Affect Your HC Choices? Spiritual Referral None Who Can We Speak to About Patient's Care Family, friends Identifying Code for Release of Patient Declines to issue Information Health Care Proxy/Next of Kin Monisha () Health Care Proxy or [phone] Emergency Contact Name Monisha () Emergency Contact or [phone] Advance Directives? No: Declines further information PAC Instructions Bring CPAP/BIPAP Durable medical equipment Medications to take/avoid Nasal antibiotic No ETOH/petroleum product on skin DOS NPO Pre-surgical wash Sensory aids Sturdy shoes/comfortable clothes Do not bring valuables and remove jewelry Comment Do not take losartan dos
--- NOTE | 2018-10-27 16:19 | PC.NURSE ---
pt given all discharge instructions and prescriptions. Escorted out to transportation by hospital staff via wheelchair.
--- NOTE | 2018-10-27 16:25 | PT.IPTN ---
Current Diagnoses Unilateral primary osteoarthritis, right knee (10/26/18) Surgery Performed Operation Date: 10/26/18 13:00 Actual Procedures p Total Knee Arthroplasty(Right) - Dagoberto Rivero MD Physical Therapy Treatment Note M2 PT-IP Current Condition Start: 10/27/18 08:51 Freq: NEEDED Status: Discharge Protocol: Document 10/27/18 08:15 BS (Rec: 10/27/18 12:02 BS [email or web address]) Physical Therapy Current Condition Current Condition Evaluation Date 10/27/18 Treatment Diagnosis R TKA Weight Bearing Status Weight Bearing Status Weight Bear as Tolerated Allowed Weight Bearing Amount (enter % WBAT with RLE. or #) (%) M3 PT-IP Subjective Start: 10/27/18 08:51 Freq: NEEDED Status: Discharge Protocol: Document 10/27/18 14:00 CLB (Rec: 10/27/18 16:25 CLB [id number]) Subjective Physical Therapy Visit Type Type Treatment Note Visit Start Time 14:00 Visit Stop Time 14:35 Total Visit Minutes 35 Notes present during tx session . Number of BAR POINTER Visits 1 Physical Therapy Visit Comments Patient Comments Pt agreeable to do therapy. Therapy Pain Assessment Pain When Pain Assessed At Rest Pain Present Pain Present Pain Reported Location Right Knee Intensity 4 Scale Used Numeric (1 - 10) Pain Management Techniques Apply Cold Elevation Timing of Activity with Medications M4 PT-IP Mobility and Gait Start: 10/27/18 08:51 Freq: NEEDED Status: Discharge Protocol: Document 10/27/18 14:00 CLB (Rec: 10/27/18 16:25 CLB [id number]) PT-Transfer Assessment Sit to and From Stand Sit to and from Stand Standby Assistance Equipment Transfer Assistive Device Gait Belt Front Wheeled Walker Orthotic/Prosthetic Devices or Brace: No Transfers Transfer Destination Chair Toilet Wheelchair Transfer Technique Stand Step Pivot Transfer Ability Level of Assist Standby Assistance Comments Mobility Comments Pt able to perform sit<> stand with cues for leg and hand placement SBA. Pt requires cues to keep walker close upon chair/toilet/WC approach. Gait Assessment Gait Gait Assistance Required: Standby Assistance 1 Person Assist Distance (Feet) 150 Able to Maintain Weight Bearing Status Yes During Gait Assistive Devices Assistive Device Gait Belt Front Wheeled Walker Orthotic/Prosthetic Devices or Brace: No Gait Deviations General Gait Pattern Antalgic Decreased Stride Length Decreased Feet Clearance Step-to Gait Factors Limiting Gait Function Factors Limiting Gait Function Decreased Strength Limited Range of Motion Pain Comments Gait Comments Pt able to ambulate ~150ft SBA . Stair Climbing Assessment Evaluation Level of Assist On Stairs Standby Assistance Contact Guard Assistance 1 Person Assistance Devices Stair Climbing Assistive Devices Right Railing Technique/Endurance Stair Climbing Direction Ascend and Descend Stair Climbing Technique Step to Step Number of Steps Climbed 3 Query Text: Stair Climbing Set # Repetitions (reps) 2 Comments Stair Climbing Comments Pt able to climb stairs safely with going up stairs sideways using both hands on right rail. PT-Balance Assessment Sitting Balance and Reactions Static Sitting Balance Ability Normal Dynamic Sitting Balance Ability Normal Standing Balance and Reactions Static Standing Balance Ability Good Dynamic Standing Balance Ability Fair Device Used FWW M5 PT-IP Objective Assessments Start: 10/27/18 08:51 Freq: NEEDED Status: Discharge Protocol: Document 10/27/18 08:15 BS (Rec: 10/27/18 12:02 BS [email or web address]) Orientation Orientation/Cognition Level of Alertness Alert Safety Awareness Understands Safety Issues Gross Range of Motion Lower Extremity ROM Assessment Right Impaired Impairments Decreased R quad activation s/ p R TKA. Hip flexion, ankle DF, PF strength 5/5 bilaterally. Muscle Tone Muscle Tone WNL Yes M6 PT-IP Treatment Start: 10/27/18 08:51 Freq: NEEDED Status: Discharge Protocol: Document 10/27/18 08:15 BS (Rec: 10/27/18 12:02 BS [email or web address]) Physical Therapy Treatment Exercises Exercises Ankle Pumps Quad Sets Education Education Provided Weight Bearing Status Post-Op Packet Safety Other Treatments Other Treatment Performed lateral weight shifts with B UE on FWW. CP to R knee at end of session for decreased pain and swelling. M7 PT-IP Assessment and Plan Start: 10/27/18 08:51 Freq: NEEDED Status: Discharge Protocol: Document 10/27/18 14:00 CLB (Rec: 10/27/18 16:25 CLB [id number]) PT Summary Assessment and Plan Summary Impairments Pain ROM Strength Coordination Bed Mobility Transfers Gait Activity Tolerance Assessment Summary Pt is SBA with sit<>stand with cues for approach and hand/ leg placement for safety and comfort. Pt able to increase gait to ~150ft SBA and perform stair training. Pt declined ther ex due to increased pain after ambulation. Goals Bed Mobility Goal Standby Assistance Transfer Goal Standby Assistance Gait Goal Standby Assistance Gait Distance 100' with FWW. Days to Meet Goals 2 Frequency of Treatment Frequency Of Treatment Twice a Day Treatment Plan Physical Therapy Treatment Plan Bed Mobility Training Transfer Training Gait Training Therapeutic Exercise Balance Retraining Discharge Planning Hot or Cold Pack Recommendations To Nursing Amount of Assist Needed 1 Person Assist Discharge Recommendations PT Discharge Recommendations Home
== END 2018-10-27 15:35 | disposition home or self-care (01) | DRG 470 ==
PROVIDERS: Admitting Provider Orthopaedic Surgery; Family Provider Family Medicine; PCP Family Medicine; Visit Provider Orthopaedic Surgery
PROC: 0SRC0JZ Replacement of Right Knee Joint with Synthetic Substitute, Open Approach (ICD-10-PCS; CPT 27447; principal; 2018-10-26 13:00)
DX: M17.11 Unilateral primary osteoarthritis, right knee (principal); I10 Essential (primary) hypertension; F31.9 Bipolar disorder, unspecified; Z96.652 Presence of left artificial knee joint
CPT/HCPCS: 36415; 73560; 85014; 85018; 94760; 97116; 97161; 97530; C1776; C9290; J1100; J1170; J2250; J2270; J2405; J2704; J3010

== ENCOUNTER → 2022-07-16 12:07 | Outpatient (CLI) | payer OTHER, SELFPAY ==
[2018-10-26 16:46] VITALS: BMI 31.1
--- NOTE | 2022-07-16 | DI.CT.S_ITS ---
PROCEDURE: CT LE RT WO CON INDICATIONS: Pain in right knee TECHNIQUE: Noncontrast 1-1.5 mm axial sections acquired from the mid-patella to the proximal tibia, with coronal and sagittal reformats. COMPARISON: [facility] [place] [facility], CR, XR KNEE 4+ VIEWS RIGHT, 07/08/2022, 16:07. FINDINGS: Image quality: Excellent. Bones: Patient is status post right total knee arthroplasty with significant beam hardening artifacts seen partially limits evaluation. Fragmented appearance involving superior lateral aspect of patella is seen which is a new finding since recent knee radiograph consistent with acute comminuted fracture in this area. Displacement of fractured fragments are seen with up to 6 mm diastasis at fracture site. No other fracture or dislocation is seen. No evidence of hardware loosening or failure. Soft tissues: Significant soft tissue swelling and edema over anterior aspect of patella and patella tendon is seen. Markedly thickened distal quadriceps tendon at its superior patellar insertion is seen with heterogeneously hyperdense signal within thickened tendon. 5 mm calcification is also noted involving medial portion of distal thickened quadriceps tendon. Patellar tendon is grossly intact. Medial and lateral collateral ligaments of right knee are grossly intact. Cruciate ligaments are not well seen. No other abnormal soft tissue calcifications. Moderate joint effusion is seen, no definite intra-articular loose bodies. IMPRESSION: 1. Finding is consistent with acute comminuted fracture involving superior and lateral portion of patella with suggestion of displaced fractured fragments as above. 2. Suggestion of associated moderate to high-grade partial-thickness tear involving distal quadriceps tendon at its superior patellar insertion . Calcification involving medial aspect of distal quadriceps tendon which may represent a avulsed fractured fragment. 3. Moderate joint effusion suggestive of hemarthrosis. 4. Prior right total knee arthroplasty. No other fracture or dislocation. No gross hardware loosening or failure. Dictated by: Neo Malone M.D. on 07/16/2022 at 13:11 Approved by: Neo Malone M.D. on 07/16/2022 at 13:27
== END ==
PROVIDERS: Family Provider Family Medicine; PCP Family Medicine; Referring Provider Orthopaedic Surgery; Visit Provider Orthopaedic Surgery
DX: M25.561 Pain in right knee (principal); M25.461 Effusion, right knee; M79.89 Other specified soft tissue disorders; Z96.651 Presence of right artificial knee joint
CPT/HCPCS: 73700